=== PATIENT | female | born 1965 | race Caucasian/White ===

== ENCOUNTER → 2017-12-15 | Outpatient (CLI) | payer BC ==
[~2017-12-15] MED LIST: DESO1TAB54 PO; HYDR12.53 PO; LEVO25TA4 PO
--- NOTE | 2017-12-15 16:03 | RAD ---
DATE: 12/15/2017 EXAM: MAMMO DORA SCREENING BILATERAL HISTORY: Routine screening COMPARISON: 12/07/2015 This study was interpreted with the benefit of Computerized Aided Detection (CAD). The breast parenchyma is heterogeneously dense, which could reduce sensitivity of mammography. Breast parenchyma level C. FINDINGS: 2-D and 3-D tomosynthesis imaging was performed in CC and MLO projections. The fibroglandular pattern is quite heterogeneous in a somewhat nodular pattern. No spiculated mass or architectural distortion is seen. An old breast biopsy marker is present medially in the left breast. Benign type calcifications are present. No suspicious microcalcifications have developed. IMPRESSION: Stable mammograms without evidence of malignancy. BI-RADS CATEGORY: 2 BENIGN FINDING(S) RECOMMENDED FOLLOW-UP: 12M 12 MONTH FOLLOW-UP PQRS compliance statement: Patient information was entered into a reminder system with a target due date for the next mammogram. Mammography is a sensitive method for finding small breast cancers, but it does not detect them all and is not a substitute for careful clinical examination. A negative mammogram does not negate a clinically suspicious finding and should not result in delay in biopsying a clinically suspicious abnormality. "Our facility is accredited by the [employer] Mammography [employer]."
== END | disposition home or self-care (01) ==
LOC: MAMMO 14:47
PROVIDERS: ATTEND Physician Assistant Medical
DX: Z12.31 Encounter for screening mammogram for malignant neoplasm of breast (principal)
CPT/HCPCS: 77063; 77067

== ENCOUNTER → 2018-05-23 | Outpatient (CLI) | payer BC ==
--- NOTE | 2018-05-23 10:35 | RAD ---
ABDOMEN COMPLETE History: Elevated lipase Comparison: None available at this time Findings: Multiple sonographic images of the abdomen are submitted. There is no abnormality of the visualized pancreas. There is segmental visualization of the inferior vena cava. Abdominal aortic caliber is within normal limits, up to about 1.6 cm. No focal hepatic lesion is demonstrated. Right lobe of the liver measured 16.1 cm longitudinal. There is a large echogenic shadowing focus in the gallbladder lumen compatible with a large gallstone estimated about 3.2 cm in size. There is no demonstrated gallbladder wall thickening or pericholecystic fluid. Right kidney measured 11.9 x 5.4 x 5.5 cm. Left kidney measured 10.6 x 5.7 x 5.3 cm. There is no hydronephrosis of either kidney. Spleen measured up to 9.1 cm. No free fluid is demonstrated. Impression: 1. There is a large gallstone, no other significant abnormality demonstrated. Electronically signed by: Joaquin Treviño MD (05/23/2018 10:32 AM) [email or web address]
== END | disposition home or self-care (01) ==
LOC: US 08:55
PROVIDERS: ATTEND Physician Assistant
DX: K80.80 Other cholelithiasis without obstruction (principal); E78.5 Hyperlipidemia, unspecified
CPT/HCPCS: 76700

== ENCOUNTER → 2019-01-23 | Outpatient (CLI) | payer BC ==
[~2019-01-23] MED LIST changes: -HYDR12.53 PO; +HYDR12.572 PO
--- NOTE | 2019-01-23 14:42 | RAD ---
LUMBAR SPINE 2-3V History: Low back pain Comparison: November 23, 2015 Findings: 3 views lumbar spine are submitted. There has been cholecystectomy in interval. Lumbar vertebral body stature and AP alignment are overall maintained, unchanged in interval. There is facet degenerative change of the inferior lumbar spine such L3-4 through L5-S1. There is again [id number] degenerative disc disease at L4-5 and to lesser degree L3-4, minimally at L2-3. There is mild spondylosis greatest L2-3 and L3-4. There is very mild levoscoliosis centered near L2-3. Impression: 1. There is facet degenerative change greater inferiorly of the lumbar spine. There is degenerative disc disease greatest L3-4 and L4-5. Electronically signed by: Joaquin Treviño MD (01/23/2019 2:39 PM) [email or web address]
--- NOTE | 2019-01-23 14:42 | RAD ---
EXAM: Cervical spine, 3 views. HISTORY: Pain. COMPARISON: None. FINDINGS: 3 views of the cervical spine are obtained. There is no significant listhesis. The vertebral bodies are normal in height. There is minimal endplate remodeling at multiple levels. There is multilevel facet arthropathy. There are surgical clips within the neck likely due to prior endarterectomy surgery. IMPRESSION: 1. Multilevel degenerative change involving the cervical spine. 2. No acute osseous finding. Electronically signed by: Kendal Carvajal MD (01/23/2019 2:39 PM) [place] [id number]
== END | disposition home or self-care (01) ==
LOC: PMG 14:15
PROVIDERS: ATTEND Registered Nurse
DX: M51.36 Other intervertebral disc degeneration, lumbar region (principal); M47.812 Spondylosis without myelopathy or radiculopathy, cervical region; M47.817 Spondylosis without myelopathy or radiculopathy, lumbosacral region; M12.88 Other specific arthropathies, not elsewhere classified, other specified site; Z90.49 Acquired absence of other specified parts of digestive tract; Z86.79 Personal history of other diseases of the circulatory system
CPT/HCPCS: 72040; 72100

== ENCOUNTER → 2019-01-29 | Outpatient (CLI) | payer BC ==
--- NOTE | 2019-01-29 16:20 | RAD ---
DATE: 01/29/2019 EXAM: MAMMO DORA SCREENING BILATERAL HISTORY: Routine screening COMPARISON: 12/15/2017 This study was interpreted with the benefit of Computerized Aided Detection (CAD). Breast Density: HETERO The breast parenchyma is heterogenously dense, which could reduce sensitivity of mammography. Breast parenchyma level C. FINDINGS: 2-D and 3-D tomosynthesis imaging was performed in CC and MLO projections. An old breast biopsy marker is present medially in the left breast. No new or enlarging breast densities are seen. Benign type calcifications are present. No suspicious microcalcifications have developed. IMPRESSION: Stable mammograms without evidence of malignancy. BI-RADS CATEGORY: 2 BENIGN FINDING(S) RECOMMENDED FOLLOW-UP: 12M 12 MONTH FOLLOW-UP PQRS compliance statement: Patient information was entered into a reminder system with a target due date for the next mammogram. Mammography is a sensitive method for finding small breast cancers, but it does not detect them all and is not a substitute for careful clinical examination. A negative mammogram does not negate a clinically suspicious finding and should not result in delay in biopsying a clinically suspicious abnormality. "Our facility is accredited by the [employer] Mammography [employer]."
--- NOTE | 2019-01-29 16:39 | RAD ---
Indication: Postmenopausal screening for osteoporosis. COMPARISON: None. Bone Density: -BMD: (g/cm2) - AP Spine Total (L1-L4).......... 1.020. - Total right Hip................. 0.784. T-Score: - AP Spine Total (L1-L4)......... -1.3. - Total right Hip................. -1.4. Z-Score: - AP Spine Total (L1-L4).......... -0.6. - Total right Hip................. -0.8. World Health Organization criteria for BMD interpretation classify patients as Normal (T-score at or above -1.0), Osteopenic (T-score between -1.0 and -2.5), or Osteoporotic (T-score at or below -2.5). Impression: 1. AP Spine Total L1-L4--- osteopenia. 2. Total right Hip--- osteopenia. Electronically signed by: Candelario Douglas MD (01/29/2019 4:36 PM) [id number]
== END | disposition home or self-care (01) ==
LOC: DXRAD 10:47
PROVIDERS: ATTEND Registered Nurse
DX: Z12.31 Encounter for screening mammogram for malignant neoplasm of breast (principal); M85.88 Other specified disorders of bone density and structure, other site; N64.89 Other specified disorders of breast; Z78.0 Asymptomatic menopausal state
CPT/HCPCS: 77063; 77067; 77080

== ENCOUNTER → 2019-09-18 | Outpatient (CLI) | payer BC ==
--- NOTE | 2019-09-18 16:31 | RAD ---
EXAM: Right wrist, 3 views. HISTORY: Pain. COMPARISON: None. FINDINGS: 3 views of the right wrist are obtained. There is no fracture, dislocation or subluxation. There is a tiny ossicle or calcification adjacent to the distal scaphoid, the appearance of which does not favor a tiny avulsion fracture fragment. No foreign body is seen. IMPRESSION: No acute osseous finding. Electronically signed by: Kendal Carvajal MD (09/18/2019 4:28 PM) [place] [id number]
== END | disposition home or self-care (01) ==
LOC: PMG 16:13
PROVIDERS: ATTEND Physician Assistant Medical
DX: M25.531 Pain in right wrist (principal)
CPT/HCPCS: 73110

== ENCOUNTER → 2020-05-27 | Outpatient (CLI) | payer BC ==
--- NOTE | 2020-05-28 09:10 | RAD ---
BILATERAL SCREENING MAMMOGRAM, 3-D History: Routine screening. Comparison: 01/21/2019, 12/15/2017, 12/07/2015, 10/09/2014, 08/14/2013. Technique: MLO and CC digital tomosynthesis (3D) images obtained. Radiologist reviewed these images on dedicated workstation. Findings: Breast Tissue Density D :The breasts are extremely dense, which lowers the sensitivity of mammography. There are no dominant masses, suspicious microcalcifications, or architectural distortion. IMPRESSION: No mammographic evidence of malignancy. Recommend routine screening. BI-RADS category 1: Negative. The images were reviewed with computer-aided detection. Patient information is entered into reminder system with a target due date for the next screening mammogram. Mammography is the most sensitive method for finding small breast cancers, but it does not detect them all and is not a substitute for careful clinical examination. A negative mammogram does not negate a clinically suspicious finding and should not result in delay in biopsying a clinically suspicious abnormality. "Our facility is accredited by the [employer] Mammography [employer]." Electronically signed by: Enoc Ventura MD (05/28/2020 9:07 AM) [email or web address]
== END | disposition home or self-care (01) ==
LOC: MAMMO 10:14
PROVIDERS: ATTEND Physician Assistant Medical
DX: Z12.31 Encounter for screening mammogram for malignant neoplasm of breast (principal)
CPT/HCPCS: 77063; 77067

== ENCOUNTER → 2020-07-23 | Outpatient (CLI) | payer BC ==
--- NOTE | 2020-07-23 16:18 | RAD ---
AP and Lateral Views of the Chest 07/23/2020 12:00 AM Indication: Reason: DYSPNEA TIMES 10 TIMES, LEFT SIDE CHEST PAIN / Spl. Instructions: / History: Comparison: CT chest May 05, 2011 Findings: There is a 1.2 cm right basilar nodule.. This could represent a true pulmonary nodule or be artifactual. No pneumothorax, pleural effusion, or other infiltrate is seen. Heart size is normal. Bony thorax is intact. IMPRESSION: 1. Apparent 1.2 cm right basilar nodule. Recommend CT for further evaluation 2. No other acute cardiopulmonary process Electronically signed by: Nacho Mccloud MD (07/23/2020 4:15 PM) [id number]
== END ==
LOC: PMG 14:15
PROVIDERS: ATTEND Physician Assistant
DX: R91.1 Solitary pulmonary nodule (principal); R07.89 Other chest pain; R06.00 Dyspnea, unspecified
CPT/HCPCS: 71046

== ENCOUNTER → 2020-08-24 | Outpatient (CLI) | payer BC ==
--- NOTE | 2020-08-24 18:36 | RAD ---
CT scan of the chest without contrast 08/24/2020 CLINICAL HISTORY: Possible nodule seen within the right lower lobe on chest radiographs TECHNIQUE: Unenhanced, contiguous, 1 mm axial sections were obtained through the chest and upper abdo men. One or more of the following individualized dose reduction techniques were utilized for this study: 1. Automated exposure control. 2. Adjustment of the mA and/or kV according to patient size. 3. Use of iterative reconstruction technique. FINDINGS: Atherosclerotic calcification of the thoracic aorta and its branches is seen. The thoracic aorta is mildly tortuous but tapers normally. The heart is normal in size. No hilar, mediastinal or a xillary lymphadenopathy is seen. Minimal dependent subsegmental atelectasis is seen involving both lower lobes. No pulmonary mass or n odule is seen. Very mild emphysematous changes are seen involving both lungs. No area of consolidatio n, pleural effusion or pneumothorax is noted. Images through the upper abdomen demonstrate atherosclerotic calcification abdominal aorta. Degenerat jason changes are seen involving the thoracic spine. IMPRESSION: No acute abnormality. No pulmonary mass or nodule is seen. Electronically signed by: Dmitri Chavez MD (08/24/2020 6:33 PM) [id number]
== END ==
LOC: CT 11:20
PROVIDERS: ATTEND Physician Assistant
DX: J98.11 Atelectasis (principal); R91.1 Solitary pulmonary nodule; J43.9 Emphysema, unspecified; I70.0 Atherosclerosis of aorta; M47.814 Spondylosis without myelopathy or radiculopathy, thoracic region
CPT/HCPCS: 71250

== ENCOUNTER → 2021-07-01 | Outpatient (CLI) | payer BC ==
--- NOTE | 2021-07-01 15:24 | RAD ---
History: 55-year-old asymptomatic patient presents for routine screening mammogram. PROCEDURE: 3-D tomosynthesis was performed of the breasts bilaterally. 2-D C-view craniocaudal and mediolateral oblique digital mammograms were also generated. The images were also evaluated with com puter-aided detection and the CAD results were analyzed. COMPARISON: [ Bilateral screening mammogram from May 27, 2020 ] FINDINGS: The breast tissue is extremely dense. This may lower the sensitivity of mammography (Level 4 density ). There are no suspicious masses, suspicious microcalcifications or areas of architectural distortio n. There is a biopsy clip in the left breast IMPRESSION: Negative mammogram. Patient information was entered into the reminder system with a tar get due date for the next screening mammogram . Routine annual screening mammogram in one year advise d. BI-RADS Category 1: Negative. Your mammogram demonstrates that you have dense breast tissue, which could hide abnormalities, and if you have other risk factors for breast cancer that have been identified, you might benefit from supp lemental screening tests that may be suggested by your ordering physician. Dense breast tissue, in a nd of itself, is a relatively common condition. This information is not provided to cause undue conc chio, but rather to raise your awareness and to promote discussion with your physician regarding the p resence of other risk factors, in addition to dense breast tissue. A report of your mammography resul ts will be sent to you and your physician. You should contact your physician if you have any questio ns or concerns regarding this report. A mammogram does not have 100% sensitivity and therefore a negative imaging study should not delay fu rther work up of a suspicious abnormality. "Our facility is accredited by the [employer] Mammography [employer]." Electronically signed by: Christine Read MD (07/01/2021 3:22 PM) [id number]
== END ==
LOC: MAMMO 14:23
PROVIDERS: ATTEND Physician Assistant Medical
DX: Z12.31 Encounter for screening mammogram for malignant neoplasm of breast (principal)
CPT/HCPCS: 77063; 77067

== ENCOUNTER → 2021-11-10 | Outpatient (CLI) | payer BC ==
--- NOTE | 2021-11-11 08:31 | RAD ---
KNEE 2 VIEWS LEFT Clinical Indication: Reason: KNEE PAIN, NKI / Spl. Instructions: / History: Comparison: None. Findings: Sensitivity decreased without third view. There is no acute fracture or dislocation. The tricompartmental joint spaces are maintained. The basurto lla is in anatomic position. Patellar enthesophyte. There is no soft tissue abnormality. There is no joint effusion. IMPRESSION: No acute fracture. Electronically signed by: Clive Read MD (11/11/2021 8:28 AM) [id number]
--- NOTE | 2021-11-11 09:14 | RAD ---
XR CHEST 2V History: Reason: STERNUM PAIN / Spl. Instructions: / History: Comparison: Two-view chest July 23, 2020. Findings: The cardiomediastinal silhouette is normal. Pulmonary vasculature is normal. The lungs are clear. No pleural effusion or pneumothorax is seen. There is no acute bone abnormality. IMPRESSION: No acute cardiopulmonary process. Electronically signed by: Clive Read MD (11/11/2021 9:12 AM) [id number]
== END ==
LOC: RAD 12:49
PROVIDERS: ATTEND Physician Assistant Medical
DX: M25.572 Pain in left ankle and joints of left foot (principal); R07.89 Other chest pain
CPT/HCPCS: 71046; 73560

== ENCOUNTER → 2021-11-17 | Outpatient (CLI) | payer BC ==
--- NOTE | 2021-11-18 08:30 | RAD ---
EXAM: Abdomen sonogram. HISTORY: Right flank lumps. TECHNIQUE: Sonographic imaging of the right flank at the site of palpable concern was performed. COMPARISON: None. FINDINGS: There are solid circumscribed nonvascular nodules isoechoic to fat within the subcutaneous fat of the right flank at the site of palpable concern measuring 3.0 cm x 1.3 cm x 0.8 cm and 1.2 cm x 0.7 cm x 0.6 cm. No additional lesion is seen. IMPRESSION: 3.0 cm and 1.2 cm solid nonvascular nodules within the subcutaneous fat of the right flan k at the site of palpable concern, the appearance of which is consistent with lipomas. Continued clin ical follow-up of palpable abnormalities is recommended. Electronically signed by: Kendal Carvajal MD (11/18/2021 8:27 AM) [id number]
== END ==
LOC: US 16:17
PROVIDERS: ATTEND Physician Assistant Medical
DX: R22.2 Localized swelling, mass and lump, trunk (principal)
CPT/HCPCS: 76705